=== PATIENT | male | born 1955 | race Caucasian/White ===

== ENCOUNTER 2024-02-29 13:41 | Emergency (ER) | payer MEDICARE, SELFPAY ==
[2024-02-29] VITALS (26 sets, daily range): BP systolic 121–151; BP diastolic 63–71; PULSE 79–101; RESP 6–23; TEMP 37.1; O2SAT 92–99
--- NOTE | 2024-02-29 13:30 | RT.EKG_ITS ---
APPROVED REPORT Exam: Resting ECG Reason for Exam: palpatations Patient Location: E HR:100 bpm ECG Measurements Heart Rate 100 AXIS AK 145 P 86 QRSd 83 QRS 45 QT 330 T -28 QTc 426 Conclusion Sinus tachycardia 100 +pvc no stemi
--- NOTE | 2024-02-29 13:49 | W.ED.GENAD ---
Discharge Plan Discharge Details Chief Complaint: Chest Pain Primary Care Provider: Unknown,Unknown ED Provider: Jeremy Cleary Home Meds and New Rx's Prescriptions: No Action olmesartan 40 mg PO DAILY amlodipine 10 mg tablet 10 mg PO DAILY atorvastatin 20 mg tablet 20 mg PO DAILY hydrochlorothiazide 25 mg tablet 25 mg PO DAILY metformin 1,000 mg tablet 1,000 mg PO BID multivitamin [Daily Multi-Vitamin] Tablet 1 tab PO DAILY cholecalciferol (vitamin D3) [Vitamin D3] 25 mcg (1,000 unit) tablet 25 mcg PO DAILY aspirin [Aspirin Childrens] 81 mg tablet,chewable 81 mg PO DAILY HPI General Date/Time Provider Initiated Documentation: 02/29/24 13:44. HPI Narrative: 68 year-old male presents to ED today by POV/ambulating with a chief complaint of chest pressure, radiating up through his neck and mid-back with onset focally around 1200, but may have been present as early as 0900. Quality described as pressure/heaviness, no radiation to dizziness, diaphoresis, cough, fever, shortness of breath, exertional onset. Severity is described as 4/10. Palliating factors include nothing attempted. Provoking factors include nothing specific- awoke this way. Events leading up to the incident/Associated Symptoms: Patient denies cardiac history, denies major FHx of heart attacks. Patient not anticoagulated. Related Data Home Medications ?Medication ?Instructions ?Recorded ?Confirmed amlodipine 10 mg tablet 10 mg PO DAILY 02/29/24 02/29/24 aspirin 81 mg chewable tablet 81 mg PO DAILY 02/29/24 02/29/24 (Aspirin Childrens) atorvastatin 20 mg tablet 20 mg PO DAILY 02/29/24 02/29/24 cholecalciferol (vitamin D3) 25 25 mcg PO DAILY 02/29/24 02/29/24 mcg (1,000 unit) tablet (Vitamin D3) hydrochlorothiazide 25 mg tablet 25 mg PO DAILY 02/29/24 02/29/24 metformin 1,000 mg tablet 1,000 mg PO BID 02/29/24 02/29/24 multivitamin (Daily Multi-Vitamin 1 tab PO DAILY 02/29/24 02/29/24 tablet) olmesartan 40 mg PO DAILY 02/29/24 02/29/24 Allergies Allergy/AdvReac Type Severity Reaction Status Date / Time No Known Allergies Allergy Unverified 02/29/24 14:51 General Stated Complaint: Chest Pain DIA: 2 Review of Systems All systems reviewed & are unremarkable except as noted in HPI and below Exam Narrative Exam Narrative: GENERAL APPEARANCE: Well-nourished, non-toxic, awake and alert, atraumatic, no acute distress. SKIN: Warm, pink, dry, intact, without rashes/lesions/ulcerations. HEAD: Normocephalic, atraumatic, normal hair distribution for gender/age. EYES: Normal conjunctiva, no exudates on lids/lashes. ENT: Nares patent, no circumoral cyanosis, no facial swelling NECK: Supple, trachea midline, painless cervical ROM. LUNGS/CHEST: Lungs CTA bilaterally- no rhonchi/rales/wheezes diffusely, non-labored respirations, normal A/P diameter, symmetrical expansion, no chest wall deformity, mild tenderness with pressure over the sternum, not over intercostals/ribs HEART (CV/PV): Regular rate and rhythm without murmur, no peripheral edema, no JVD. ABDOMEN: Soft, non-distended, no guarding, no tenderness, no pulsatile masses. MSK: Normal ROM, no swelling/deformity to bilateral UEs or LEs, moving all extremities without weakness, no cyanosis, spine midline without tenderness, normal curvature. NEURO: Mental Status AAOx4 - alert to person, place, time, events No facial droop, no forehead involvement. Motor: No focal weakness - strength 5/5 in bilateral UEs and LEs, proximal and distal, symmetric. Sensory: sensation intact to light touch globally. Gait normal: patient ambulated without ataxia into ED room. PSYCH: euthymic, cooperative, pleasant, appropriate speech Course Vital Signs Vital signs: Vital Signs Temperature 37.1 C 02/29/24 13:43 Pulse 101 H 02/29/24 13:43 Blood Pressure 151/71 H 02/29/24 13:43 Pulse Oximetry 96 02/29/24 13:43 Temperature 37.1 C 02/29/24 13:43 Temperature Source Temporal Artery Scan 02/29/24 13:43 Pulse 101 H 02/29/24 13:43 Blood Pressure 151/71 H 02/29/24 13:43 Blood Pressure Position Sitting 02/29/24 13:43 Pulse Oximetry 96 02/29/24 13:43 Oxygen Delivery Method Room Air 02/29/24 13:43 Oxygen Flow Rate 0 02/29/24 13:43 Medical Decision Making This dictation utilizes [id number] dictation software and may contain unedited grammatical errors. 68 year-old male presents to ED today by POV/ambulating with a chief complaint of chest pressure, radiating up through his neck and mid-back with onset focally around 1200, but may have been present as early as 0900. Quality described as pressure/heaviness, no radiation to dizziness, diaphoresis, cough, fever, shortness of breath, exertional onset. Severity is described as 4/10. Palliating factors include nothing attempted. Provoking factors include nothing specific- awoke this way. Events leading up to the incident/Associated Symptoms: Patient denies cardiac history, denies major FHx of heart attacks. Patients' medical history: Hypertension. Family and social history: Was driving up from [place] to vacation home in [place] but this pain in his encouraged him to be evaluated at the ED. Pertinent exam findings / vital signs include mild tachycardia, no murmur, no JVD, benign abdomen without pulsatile mass, neuro intact, nontoxic. Differential / pathologies of concern include ACS, PE, costochondritis, aortic pathology, palpitations, pneumonia. Diagnostic studies of: -CBC, CMP, serial troponin I, lipase, D-dimer, EKG, CTA Thorax/ABD/Pelvis -CBC shows a mild leukocytosis of 13 with elevated absolute neutrophil count -Initial troponin negative -D-dimer negative -CMP shows mildly elevated calcium -Lipase negative -EKG with some nonspecific ST segment changes otherwise normal, normal intervals, narrow complex QRS without T wave abnormalities no signs of ischemia Interventions of: -243mg CH ASA, 0.4 SL nitro q5 PRN. ED Course/Assessment/Plan: 68-year-old male presents with chest pressure and heaviness and pain radiating to his neck and mid back, onset around noon today, questions if it was present slightly before the in the morning time. He denies any cardiac history, he did later endorse that he had some known plaque seen on a [employer] dental x-ray and his carotid arteries, takes medicine for hypertension only. Initial troponin is negative, EKG shows some mild ST changes non-specific, not ST-depressions or ischemia. Patient signed out to oncoming provider Kanika Mendoza NP with repeat troponin pending being drawn at 1700, CTA thorax for aortic pathology will be performed as well, patient is heart score low risk and could be reasonably disposed home as an outpatient as he lives in [place] and would likely seek cardiac follow-up in that location. I discussed with him his need for near future echocardiogram and treadmill stress test which she endorses having had years ago. Findings not consistent with ACS, PE, PNA. Disposition of Chest Pain of Uncertain Etiology. Patient verbalized understanding of the plan and return to ED criteria and engaged in shared decision making. Medical Records Medical records reviewed: Yes I reviewed the patient's medical records. Lab Data Lab results reviewed: Yes I reviewed the patient's lab results. Labs: Laboratory Tests Range/Units 02/29/24 14:10 WBC (4.4-10.8) 10^3/uL 13.15 H RBC (4.36-5.78) 10^6/uL 4.51 Hgb (13.5-17.5) g/dL 13.7 Hct (40.0-50.0) % 40.1 MCV (80-95) fL 89 MCH (27.0-33.0) pg 30.4 MCHC (32.0-36.0) % 34.2 RDW (11.8-14.1) % 13.0 Plt Count (130-400) 10^3/uL 163 MPV (8.0-11.0) fL 11.0 Immature Gran % % 0.4 Neutrophils % % 78.7 Lymphocytes % % 12.4 Monocytes % % 7.9 Eosinophils % % 0.2 Basophils % % 0.4 Nucleated RBC % (0.0-0.3) % 0.0 Absolute Neutrophils (1.2-6.7) 10^3/uL 10.35 H Absolute Lymphocytes (1.2-3.4) 10^3/uL 1.63 Absolute Monocytes (0.1-0.8) 10^3/uL 1.04 H Absolute Eosinophils (0.0-0.7) 10^3/uL 0.03 Absolute Basophils (0.0-0.2) 10^3/uL 0.05 D-Dimer (<500) ng/mlFEU 259 Sodium (136-145) mmol/L 135 L Potassium (3.5-5.1) mmol/L 3.9 Chloride (98-107) mmol/L 99 Carbon Dioxide (21.0-32.0) mmol/L 27.2 Anion Gap (3-11) mmol/L 8.8 BUN (7-18) mg/dL 21 H Creatinine (0.70-1.30) mg/dL 1.3 Est GFR (CKD-EPI 2020) (mL/min/1.73m2) 60.21 Glucose (74-106) mg/dL 115 H Calcium (8.5-10.1) mg/dL 10.2 H Total Bilirubin (0.2-1.0) mg/dL 0.67 AST (15-37) U/L 23 ALT (16-63) U/L 36 Alkaline Phosphatase (46-116) U/L 79 Troponin I (< or =60) ng/L < 50 Total Protein (6.4-8.2) g/dL 7.7 Albumin (3.4-5.0) g/dL 4.1 Lipase (16-77) U/L 28 Quality:[facility] Health Related Social Needs: No Data to Display [facility] Social History Smoking/Tobacco Use Status: Never Smoking risk assessment performed?: Yes Alcohol Intake: current Alcohol Intake frequency: a few times a week Drug use: Never Substance use type: does not use Housing: house Do you feel safe at home: Yes Do you feel safe in your relationship?: Yes
[2024-02-29] MEDS: Aspirin 81 MG CHEW 243 MG CH (14:11)
[2024-02-29 14:16] LABS: Abs Immature Grans 0.05 10^3/uL (0.0-0.06); Absolute Basophil Count 0.05 10^3/uL (0.0-0.2); Absolute Lymphocyte Count 1.63 10^3/uL (1.2-3.4); Absolute Monocyte Count 1.04 10^3/uL (0.1-0.8); Basophils % 0.4 %; Eosinophils % 0.2 %; HCT 40.1 % (40.0-50.0); HGB 13.7 g/dL (13.5-17.5); Immature Grans % 0.4 %; Lymphocytes % 12.4 %; MCH 30.4 pg (27.0-33.0); MCHC 34.2 % (32.0-36.0); MCV 89 fL (80-95); Monocytes % 7.9 %; Neutrophils % 78.7 %; Platelet Count 163 10^3/uL (130-400); RBC 4.51 10^6/uL (4.36-5.78); RDW-SD 42.5 fL; WBC 13.15 10^3/uL (4.4-10.8)
[2024-02-29 14:18] LABS: Absolute Eosinophil Count 0.03 10^3/uL (0.0-0.7); Absolute Neutrophil Count 10.35 10^3/uL (1.2-6.7)
[2024-02-29 14:35] LABS: ALT 36 U/L (16-63); AST 23 U/L (15-37); Albumin 4.1 g/dL (3.4-5.0); Alkaline Phosphatase 79 U/L (46-116); Anion Gap 8.8 mmol/L (3-11); BUN 21 mg/dL (7-18); Bilirubin, Total 0.67 mg/dL (0.2-1.0); CO2 27.2 mmol/L (21.0-32.0); CREATININE 1.3 mg/dL (0.70-1.30); Chloride 99 mmol/L (98-107); Estimated GFR 60.21 (mL/min/1.73m2); Glucose 115 mg/dL (74-106); Lipase 28 U/L (16-77); Potassium 3.9 mmol/L (3.5-5.1); Sodium 135 mmol/L (136-145); Total Protein 7.7 g/dL (6.4-8.2); Troponin I < 50 ng/L (< or =60)
[2024-02-29 14:41] LABS: Calcium 10.2 mg/dL (8.5-10.1)
[2024-02-29 14:59] LABS: D-Dimer 259 ng/mlFEU (<500)
[2024-02-29] MEDS: nitroGLYcerin 0.4 MG TAB SL (15:28)
--- NOTE | 2024-02-29 15:37 | W.ED.FU ---
Date of service: 02/29/24 Time of Service: 15:38 Follow Up Plan: Care assumed from provider (IRA Loera) Please see their initial HPI, PE, and documentation. Discussed patient details and case and pending workup and disposition. Patient is hemodynamically stable, and alert and oriented. At the time of signout awaiting repeat troponin, CT chest, reevaluation and disposition. CT chest and thoracic within normal limits. No evidence of aortic dissection or PE. CT chest negative Repeat Troponin WNL, on patient re-evaluation, He is chest pain free. Instructed to follow up with PCP to discuss stress testing and echocardiogram. Verbalized understanding.
--- NOTE | 2024-02-29 15:53 | DI.CT_ITS ---
Exam(s) CT THORAX ABD/PEL CTA EXAM: CT THORAX ABD/PEL CTA CLINICAL HISTORY: chest pain, radiating to mid-back, ?aorta. TECHNIQUE: Imaging Protocol: Axial CT angiography was performed with multi-slice acquisition and m ulti-planar and/or 3D reconstructions. CONTRAST MATERIAL: Intravenous: Omnipaque 350 contrast volume:100 mL Oral: No COMPARISON: No exams were available for comparison FINDINGS: CHEST: Tracheobronchial tree: Patent where visualized. Pulmonary parenchyma: No consolidation or dominant measurable mass. No architectural distortion. Pulmonary Arteries: No evidence of filling defect to suggest pulmonary emboli. Mediastinum and Ana Laura: No dominant adenopathy or fluid collection. The esophagus is unremarkable. Visualized thyroid: Unremarkable. Pleura: No effusion or pneumothorax. Heart: The heart is not dilated. No coronary artery calcifications are seen. No pericardial effusion. Aorta: Thoracic aorta non-dilated. Mild atherosclerotic calcification. No evidence of dissection. Soft Tissues: Unremarkable. Bones: Within normal limits for the patient's age. ABDOMEN AND PELVIS: Abdomen: Celiac axis/mesenteric arteries: No evidence of occlusion or significant stenosis. Minimal atheroscl erotic calcification of the origin but no significant stenosis. Renal Arteries: No evidence of occlusion or significant stenosis. Aorta: No evidence of occlusion or significant stenosis. No aneurysm or dissection. Minimal athero sclerotic calcification is present. Pelvis: Iliac Arteries: No evidence of occlusion or significant stenosis. Minimal atherosclerotic calcifica tion is present but no significant stenosis is seen. Common Femoral Arteries: No evidence of occlusion or significant stenosis. ABDOMEN: Liver: Normal density. No measurable mass. Gallbladder and Biliary Tract: No radiodense calculus or dilation. Pancreas: Normal density, no abnormal calcifications or inflammatory process. Spleen: Normal. Adrenals: No masses seen. Kidneys: Normal size, contour and axis. No radiodense stones or obstructive uropathy. No masses seen. Bowel: There is diverticulosis of the colon, but no evidence of acute diverticulitis. No evidence of bowel obstruction or bowel wall thickening. Appendix is unremarkable. Peritoneal Cavity: No ascites, collection or mesenteric inflammatory response. No free air. Lymph Nodes: Within normal limits. Bones: Within normal limits for the patient's age. Soft Tissues: There is a fat containing umbilical hernia. PELVIS: Bladder: Symmetric distention, no gross wall thickening. Reproductive Organs: Mildly enlarged prostate gland. Lymph Nodes: Within normal limits. Bones: Within normal limits for the patient's age. IMPRESSION: 1. Normal CT Angiogram of the chest, abdomen and pelvis. No evidence of dissection or aneurysm. 2. No acute pulmonary process. 3. No acute abdominal or pelvic process. RADIATION DOSE DELIVERED: Total DLP DATA REPOSITORY: All CT scans at this facility are submitted to the National Radiology Data Registry (NRDR) Dose Index Registry (DIR) with the [employer] (A[employer]). RADIATION OPTIMIZATION: All CT scans at this facility use at least one of these dose optimization te chniques: automated exposure control; mA and/or kV adjustment per patient size (includes targeted exa ms where dose is matched to clinical indication); or iterative reconstruction.
[2024-02-29] MEDS: Omnipaque 350 MG/ML 100 ML BTL IJ (16:01)
[2024-02-29] MEDS: Normal Saline - Diluent 50 ML VIAL IJ (16:02)
[2024-02-29 17:25] LABS: Troponin I < 50 ng/L (< or =60)
== END 2024-02-29 17:49 | disposition home or self-care (01) ==
PROVIDERS: Physician Assistant; Emergency Provider Registered Nurse Emergency
DX: R07.9 Chest pain, unspecified (principal); R00.0 Tachycardia, unspecified; I10 Essential (primary) hypertension
CPT/HCPCS: 71275; 80053; 83690; 93005; 74174; 84484; 85025; 85379; 93010; J3490